=== PATIENT | female | born 1965 | race Caucasian/White ===

== ENCOUNTER 2022-06-15 14:01 | Emergency (ER) | payer BC ==
[2022-06-15 15:44] LABS: ESTIMATED GFR 66 mL/min (>60)
[2022-06-15] MEDS: Sodium Chloride 0.9% 10 ML Syringe FLUSH PRN (16:24)
== END 2022-06-15 17:05 | disposition home or self-care (01) ==
LOC: JP.ED 14:01
DX: J18.9 Pneumonia, unspecified organism (principal); F17.210 Nicotine dependence, cigarettes, uncomplicated; Z88.5 Allergy status to narcotic agent; Z79.899 Other long term (current) drug therapy; Z90.49 Acquired absence of other specified parts of digestive tract
CPT/HCPCS: 36415; 71046; 80053; 85025; 86140; 99283; J3490

== ENCOUNTER 2022-10-19 15:02 | Emergency (ER) | payer BC ==
[2022-10-19] MEDS ORDERED: Sodium Chloride 0.9% 10 ML Syringe FLUSH PRN (16:22)
[2022-10-19] MEDS ORDERED: Sodium Chloride 0.9% 10 ML Syringe FLUSH ONE (16:25)
[2022-10-19] MEDS ORDERED: Sodium Chloride 0.9% 50 ML IV SCH (16:30)
[2022-10-19] MEDS ORDERED: Iopamidol 612 MG/ML 100 ML Bottle IV SCH (16:30)
[2022-10-19] MEDS ORDERED: Sodium Chloride 0.9% 1,000 ML IV SCH (16:30)
== END 2022-10-19 18:17 | disposition home or self-care (01) ==
LOC: JP.ED 15:02
DX: R10.9 Unspecified abdominal pain (principal); Z88.5 Allergy status to narcotic agent; Z90.49 Acquired absence of other specified parts of digestive tract
CPT/HCPCS: 36415; 74177; 80048; 81001; 83605; 85025; 99284; J3490; Q9967

== ENCOUNTER 2023-11-21 10:36 | Emergency (ER) | payer BC | END 2023-11-21 11:17 | disposition left against medical advice (07) | LOC: JP.ED 10:36 | DX: Z53.21 Procedure and treatment not carried out due to patient leaving prior to being seen by health care provider (principal) ==